=== PATIENT | male | born 1975 | race Caucasian/White ===

== ENCOUNTER 2020-01-25 08:00 | Emergency (ER) | payer SELFPAY ==
[~2020-01-25] VITALS: Ht 162.6 cm; Wt 65.8 kg
[2020-01-25 08:30] LABS: *BILIRUBIN,URIN NEGATIVE (NEGATIVE); *BLOOD, URINE 3+ (NEGATIVE); *CLARITY,URINE CLOUDY (CLEAR); *COLOR,URINE YELLOW (YELLOW); *KETONES,URINE NEGATIVE (NEGATIVE); *UROBILINOGEN,URINE 0.2 E.U./dl (NORMAL); LEUKOCYTE ESTERASE ,URINE 3+ (NEGATIVE); NITRITE, URINE POSITIVE (NEGATIVE); UGLUCOSE NEGATIVE (NEGATIVE)
--- NOTE | 2020-01-25 08:33 | NUR ---
PATIENT WAS SEEN BY . US PERFORMED ISAIAH ALEXIS. URINE SENT TO LAB. PATIENT GIVEN JUICE. PATIENT GIVEN A CLEAN WASH BASIN WITH BABY SHAMPOO AND SOAP. TOWELS TO CLEAN UP. HE IS WEARINGA CLEAN SHIRT AND CLEAN SHORTS WHICH ARE APPROPRIATE FOR THIS WEATHER. HE IS AMBULATORY WITH STEADY GAIT
--- NOTE | 2020-01-25 08:53 | NUR ---
I GAVE PATIENT AN EXTRA SHIRT AND SOCKS. I ALSO GAVE HIM MORE JUICE AND WATER. STATES HE HAS A "PLACE TO LIVE" AND DOES NOT NEED PRISON. DC, RX AND FOLLOW UP INSTRUCTIONS GIVEN AND EXPLAINED TO PATIENT WHO STATES HE UNDERSTANDS ALL INSTRUCTIONS
[2020-01-25 11:52] LABS: WBC,URINE TNTC /HPF (0-3)
[2020-01-25 11:54] LABS: BACTERIA,URINE MANY /HPF (NONE SEEN); SQUAMOUS EPITHELIAL CELL,UR FEW /HPF (NONE SEEN)
== END 2020-01-25 09:00 | disposition home or self-care (01) ==
LOC: ER 08:00
DX: N39.0 Urinary tract infection, site not specified (principal); Z59.0 Homelessness; Z87.440 Personal history of urinary (tract) infections; J45.909 Unspecified asthma, uncomplicated; F31.9 Bipolar disorder, unspecified
CPT/HCPCS: 87077; 87086; A4663

== ENCOUNTER 2020-02-06 00:38 | Emergency (ER) | payer SELFPAY ==
[~2020-02-06] VITALS: Ht 154.9 cm; Wt 65.8 kg
--- NOTE | 2020-02-06 00:51 | NUR ---
at bedside for MSE
--- NOTE | 2020-02-06 00:55 | NUR ---
urine sent to lab at this time
[2020-02-06 01:11] LABS: *CLARITY,URINE CLOUDY (CLEAR); *COLOR,URINE YELLOW (YELLOW)
[2020-02-06 01:12] LABS: PH,URINE 6.5 (5.0-8.0)
[2020-02-06 01:13] LABS: UGLUCOSE NEGATIVE (NEGATIVE)
[2020-02-06 01:14] LABS: *BILIRUBIN,URIN NEGATIVE (NEGATIVE); *BLOOD, URINE 3+ (NEGATIVE); *KETONES,URINE NEGATIVE (NEGATIVE); *UROBILINOGEN,URINE 0.2 E.U./dl (NORMAL); LEUKOCYTE ESTERASE ,URINE 3+ (NEGATIVE); NITRITE, URINE POSITIVE (NEGATIVE)
[2020-02-06 01:25] LABS: RBC,URINE TNTC /HPF (0-3); WBC,URINE TNTC /HPF (0-3)
[2020-02-06 01:27] LABS: BACTERIA,URINE FEW /HPF (NONE SEEN)
[2020-02-06] MEDS ORDERED: ACETAMINOPHEN ES 500 MG TABLET ONE (01:27)
--- NOTE | 2020-02-06 01:27 | NUR ---
Patient given written and verbal discharge instructions. Patient verbalizes understanding of instructions. Patient is ambulatory with steady gait. Refuses offer of senior care placement. Patient given list of available shelters in surrounding area. Patient provided with water per patient request, refused all other services at this time, VSS, no acute signs of distress, all belongings taken.
[2020-02-06] MEDS ORDERED: ACETAMINOPHEN ES 500 MG TABLET PO ONE (01:30)
[2020-02-06 01:33] VITALS: BP 113/79
== END 2020-02-06 01:34 | disposition home or self-care (01) ==
LOC: ER 00:40
DX: N39.0 Urinary tract infection, site not specified (principal); B96.20 Unspecified Escherichia coli [E. coli] as the cause of diseases classified elsewhere; Z16.12 Extended spectrum beta lactamase (ESBL) resistance; Z59.0 Homelessness; J45.909 Unspecified asthma, uncomplicated; G62.9 Polyneuropathy, unspecified; Z76.0 Encounter for issue of repeat prescription
CPT/HCPCS: 87077; 87086; A4663; A9150

== ENCOUNTER 2020-08-31 13:35 | Emergency (ER) | payer SELFPAY ==
[~2020-08-31] VITALS: Ht 165.1 cm; Wt 77.1 kg
[2020-08-31] MEDS ORDERED: DOCUSATE SODIUM 100 MG CAPSULE PO ONE ×2 (14:00→14:10)
--- NOTE | 2020-08-31 14:00 | NUR ---
at bedside for assessment
[2020-08-31] MEDS ORDERED: BISACODYL 5 MG TABLET.DR PO ONE ×2 (14:15→14:23)
--- NOTE | 2020-08-31 14:30 | NUR ---
14 sami jensen with leg bag inserted
[2020-08-31] MEDS ORDERED: BISA5TAB10 PO (14:58)
[2020-08-31] MEDS ORDERED: CEPH250C PO (15:22)
--- NOTE | 2020-08-31 15:36 | NUR ---
Patient given written and verbal discharge instructions. Patient verbalizes understanding of instructions. Patient is ambulatory with steady gait. Refuses offer of care home placement. Patient given list of available shelters in surrounding area. Given surgical boots due to patient not havng shoes, no shoes available.
[2020-08-31 15:37] VITALS: BP 118/78
== END 2020-08-31 15:35 | disposition home or self-care (01) ==
LOC: ER 13:35
DX: K59.00 Constipation, unspecified (principal); N31.9 Neuromuscular dysfunction of bladder, unspecified; N39.498 Other specified urinary incontinence; J45.909 Unspecified asthma, uncomplicated; Z59.0 Homelessness; F31.9 Bipolar disorder, unspecified; F41.9 Anxiety disorder, unspecified; G62.9 Polyneuropathy, unspecified
CPT/HCPCS: 51702; 73630; A4663

== ENCOUNTER 2021-10-28 08:33 | Emergency (ER) | payer SELFPAY ==
[~2021-10-28 08:33] MED LIST: BISA5TAB10 PO; CEPH250C PO
--- NOTE | 2021-10-28 08:46 | NUR ---
patient refusing to take vitals. and walked out.
--- NOTE | 2021-10-28 08:48 | NUR ---
46 YRS OLD, HOMELESS, AMBULATORY WITHOUT ASSISTANCE, AWAKE, ALERT AND FULLY ORIENTED; WASHED HIMSELF IN BATHROOM IN THE WAITING ROOM AND NOW DECIDED HE WANTS TO SEE THE DOCTOR BECAUSE OF FOOT PAIN; REFUSED TO HAVE VITAL SIGNS CHECKED; UNCOOPERATIVE AND CONFRONTATIONAL - LEFT WITHOUT BEING TRIAGED.
== END 2021-10-28 08:49 | disposition left against medical advice (07) ==
LOC: ER 08:35
DX: Z53.21 Procedure and treatment not carried out due to patient leaving prior to being seen by health care provider (principal)

== ENCOUNTER 2022-01-16 09:17 | Emergency (ER) | payer MEDICAID ==
[~2022-01-16] VITALS: Ht 160 cm; Wt 68.0 kg
--- NOTE | 2022-01-16 09:43 | NUR ---
Pt wanted jensen catheter replaced. Pt was highly agitated and paranoid. Pt eloped.
== END 2022-01-16 09:48 | disposition left against medical advice (07) ==
LOC: ER 09:17
DX: Z43.6 Encounter for attention to other artificial openings of urinary tract (principal); N31.9 Neuromuscular dysfunction of bladder, unspecified; Z59.00 Homelessness unspecified; J45.909 Unspecified asthma, uncomplicated; F31.9 Bipolar disorder, unspecified; F41.9 Anxiety disorder, unspecified; G62.9 Polyneuropathy, unspecified; Z53.20 Procedure and treatment not carried out because of patient's decision for unspecified reasons
CPT/HCPCS: A4663

== ENCOUNTER 2022-01-20 21:04 | Emergency (ER) | payer MEDICAID ==
[~2022-01-20] VITALS: Ht 154.9 cm; Wt 70.3 kg
--- NOTE | 2022-01-20 21:10 | NUR ---
DR. COPELAND AT BEDSIDE, MSE IN PROGRESS.
[2022-01-20] MEDS ORDERED: IV NORMAL SALINE 1000 ML BAG IV ONE (21:15)
[2022-01-20] MEDS ORDERED: MORPHINE SULFATE 2 MG/1 ML DISP.SYRIN IV ONE (21:15)
[2022-01-20] MEDS ORDERED: ONDANSETRON 4 MG/2 ML VIAL IV ONE (21:15)
[2022-01-20] MEDS ORDERED: ONDANSETRON 4 MG/2 ML VIAL ONE (21:25)
[2022-01-20] MEDS ORDERED: MORPHINE SULFATE 4 MG/1 ML DISP.SYRIN ONE (21:25)
[2022-01-20] MEDS ORDERED: ACETAMINOPHEN ES 500 MG TABLET ONE (21:25)
--- NOTE | 2022-01-20 21:28 | NUR ---
LAB AT BEDSIDE.
[2022-01-20] MEDS ORDERED: ACETAMINOPHEN 325 MG TABLET PO ONE (21:30)
--- NOTE | 2022-01-20 21:30 | NUR ---
PT REFUSED LAB TO BE DONE, DR. CAMP AWARE.
[2022-01-20] MEDS ORDERED: CEFTRIAXONE 1 G VIAL IM ONE (22:00)
[2022-01-20] MEDS ORDERED: levoFLOXacin 750 MG TABLET ONE (22:10)
[2022-01-20] MEDS ORDERED: CEPH500T PO (22:15)
[2022-01-20] MEDS ORDERED: levoFLOXacin 750 MG TABLET PO ONE (22:15)
--- NOTE | 2022-01-20 22:26 | NUR ---
Patient does not wish to proceed with medical care recommended by Dr. Celeste. Patient given information related to possible complications, up to and including , which could occur as a result of leaving the hospital at this time. Patient verbalizes understanding of risks involved due to leaving against medical advice. Patient has signed AMA form. Pt denied any pain/duiscomfort. No changes in LOC. No SOB or labored breathing.
[2022-01-20 22:28] VITALS: BP 122/72
[2022-01-20 22:33] LABS: *BILIRUBIN,URIN NEGATIVE (NEGATIVE); *BLOOD, URINE 2+ (NEGATIVE); *CLARITY,URINE TURBID (CLEAR); *COLOR,URINE YELLOW (YELLOW); *KETONES,URINE TRACE (NEGATIVE); LEUKOCYTE ESTERASE ,URINE 3+ (NEGATIVE); NITRITE, URINE POSITIVE (NEGATIVE); PH,URINE 6.5 (5.0-8.0); UGLUCOSE NEGATIVE (NEGATIVE)
[2022-01-20 22:36] LABS: BACTERIA,URINE MANY /HPF (NONE SEEN); RBC,URINE TNTC /HPF (0-3); SQUAMOUS EPITHELIAL CELL,UR MODERATE /HPF (NONE SEEN); WBC,URINE TNTC /HPF (0-3)
== END 2022-01-20 22:29 | disposition left against medical advice (07) ==
LOC: ER 21:04
DX: N39.0 Urinary tract infection, site not specified (principal); R50.9 Fever, unspecified; N31.9 Neuromuscular dysfunction of bladder, unspecified; N31.8 Other neuromuscular dysfunction of bladder; R00.0 Tachycardia, unspecified; Z53.29 Procedure and treatment not carried out because of patient's decision for other reasons
CPT/HCPCS: 51702; 87086; 93005; A4663; A9150; J2270; J2405; J7040